=== PATIENT | female | born 1995 | race Caucasian/White ===

== ENCOUNTER 2018-06-06 22:24 | Emergency (ER) | payer SELFPAY ==
[~2018-06-06] VITALS: Ht 157.5 cm; Wt 45.5 kg
[2018-06-06] MEDS ORDERED: ETON68IM3 SD (22:53)
[2018-06-07 00:30] VITALS: BP 128/84
== END 2018-06-07 01:27 | disposition left against medical advice (07) ==
LOC: EMS 22:25
DX: R21 Rash and other nonspecific skin eruption (principal); Z53.21 Procedure and treatment not carried out due to patient leaving prior to being seen by health care provider